=== PATIENT | male | born 1960 | race Two or more races ===

== ENCOUNTER 2018-11-22 17:41 | Inpatient (IN) | payer MEDICARE, MEDICAID ==
--- NOTE | 2018-11-22 18:00 | ED Physician Chart ---
ED Chief Complaint/HPI - Patient Information Date Seen:: 11/22/18 Time Seen:: 17:57 Chief Complaint:: suicidal History of Present Illness:: this is a 58 yo chronically ill male [facility] because he is suicidal. he attempted to cut himself. Allergies:: Allergies Allergy/AdvReac Type Severity Reaction Status Date / Time No Known Allergies Allergy Verified 11/22/18 17:49 Vitals:: Vital Signs - 8 hr 11/22/18 17:49 Temp 98.6 F HR 86 RR 16 BP 94/56 O2 Sat % 95 Historian:: Patient, Medical Records Review:: Nurse's Note Reviewed ED Review of Systems - Review of Systems General/Constitutional: No fever, No chills, No weight loss, No weakness, No diaphoresis, No edema, No loss of appetite, Other (this patient has difficulty ) Skin: No skin lesions, No rash, No bruising Head: No headache, No light-headedness Eyes: No loss of vision, No pain, No diplopia ENT: No earache, No nasal drainage, No sore throat, No tinnitus Neck: No neck pain, No swelling, No thyromegaly, No stiffness, No mass noted Cardio Vascular: No chest pain, No palpitations, No PND, No orthopnea, No edema Pulmonary: No SOB, No cough, No sputum, No wheezing GI: No nausea, No vomiting, No diarrhea, No pain, No melena, No hematochezia, No constipation, No hematemesis G/U: No dysuria, No frequency, No hematuria Musculoskeletal: No bone or joint pain, No back pain, No muscle pain Endocrine: No polyuria, No polydipsia Psychiatric: No prior psych history, No depression, No anxiety, No suicidal ideation Hematopoietic: No bruising, No lymphadenopathy Allergic/Immuno: No urticaria, No angioedema Neurological: No syncope, No focal symptoms, No weakness, No paresthesia, No headache, No seizure, No dizziness, No confusion, No vertigo ED Past Medical History - Past Medical History Obtainable: Yes Past Medical History: CVA/TIA, Dementia, Other (quadraplegic) Family Medical History - Family Member Mother History Unknown: Yes ED Physical Exam - Physical Examination General/Constitutional: Awake, Well-developed, well-nourished, Alert, No distress, GCS 15, Non-toxic appearing, Ambulatory Other Gen/Cons comments:: he has difficulty with speaking. Head: Atraumatic Eyes: Lids, conjuctiva normal, PERRL, EOMI Skin: Nl inspection, No rash, No skin lesions, No ecchymosis, Well hydrated, No lymphadenopathy ENMT: External ears, nose nl, Nasal exam nl, Lips, teeth, gums nl Neck: Nontender, Full ROM w/o pain, No JVD, No nuchal rigidity, No bruit, No mass, No stridor Respiratory: Nl effort/Exclusion, Clear to Auscultation, No Wheeze/Rhonchi/Rales Cardio Vascular: RRR, No murmur, gallop, rubs, NL S1 S2 GI: No tenderness/rebounding/guarding, No organomegaly, No hernia, Normal BS's, Nondistended, No mass/bruits, No McBurney tenderness : No CVA tenderness Extremities: No tenderness or effusion, Full ROM, normal strength in all extremities, No edema, Normal digits & nails Neuro/Psych: Alert/oriented, DTR's symmetric, Normal sensory exam, Normal motor strength, Judgement/insight normal, Mood normal, Normal gait, No focal deficits Other Neuro/Psych comments:: quadraplegic and has difficulty speaking Misc: Normal back, No paraspinal tenderness ED Assessment - Assessment General Assessment: suicidal ED Septic Shock - . Is Septic Shock (SBP<90, OR Lactate>4 mmol\L) present?: No - <6hrs of presentation: Vital Signs: Vital Signs - 8 hr 11/22/ 17:49 Temp 98.6 F HR 86 RR 16 BP 94/56 O2 Sat % 95 ED Reassessment (Disposition) - Diagnosis Diagnosis:: suicidal quadraplegic - Aftercare/Follow up Instructions Notes:: this patient will be given a final evaluation after labs return dr martinez will evaluate for admission.
[2018-11-22 19:00] LABS: % BASOPHILS 0.6 % (0.0-2.0); % EOSINOPHILS 6.7 % (0.0-5.0); % NEUTROPHILS 63.7 % (40.0-80.0); EOSINOPHILE ABSOLUTE 0.4 Th/cmm (0.1-0.4); HEMATOCRIT 35.2 % (41.0-60); HEMOGLOBIN 11.7 gm/dL (12-16); LYMPHOCYTE ABSOLUTE 1.3 Th/cmm (1.5-3.0); MEAN CELL VOLUME 85.7 fl (80-99); MEAN CORPUSCULAR HEMOGLOBIN 28.4 pg (26.0-30.0); MEAN CORPUSCULAR HGB CONC 33.2 pg (28.0-36.0); MONOCYTE ABSOLUTE 0.4 Th/cmm (0.3-1.0); NEUTROPHILE ABSOLUTE 3.9 Th/cmm (1.8-8.0); PLATELET COUNT 465 Th/cmm (150-400); RED BLOOD COUNT 4.11 Mil/cmm (4.30-5.70); RED CELL DISTRIBUTION WIDTH 12.5 % (11.5-20.0)
[2018-11-22 19:19] LABS: ALB/GLOB RATIO 1.2 (1.0-1.8); ALBUMIN 3.6 gm/dL (4.2-5.5); ALKALINE PHOSPHATASE 160 U/L (34-104); ANION GAP 11.6 (7.0-16.0); BILIRUBIN,TOTAL 0.4 mg/dL (0.3-1.0); BUN - UREA NITROGEN 22 mg/dL (7-25); CALCIUM SERUM 9.2 mg/dL (8.6-10.3); CARBON DIOXIDE 26.8 mEq/L (21.0-31.0); CHLORIDE 104 mEq/L (98-107); CREATININE - SERUM 0.7 mg/dL (0.7-1.3); GFR AFRICAN-AMERICAN > 60.0 ml/min (>90); GFR NON AFRICAN-AMERICAN > 60.0 ml/min; GLUCOSE 132 mg/dL (70-105); POTASSIUM SERUM 4.4 mEq/L (3.5-5.1); SGOT 12 U/L (13-39); SGPT/ALT 11 U/L (7-52); SODIUM SERUM 138 mEq/L (136-145); TOTAL PROTEIN,SERUM 6.7 gm/dL (6.0-8.3)
[2018-11-22 19:20] LABS: INR 0.9 (0.5-1.4)
[2018-11-22 23:25] VITALS: BP 118/65
[2018-11-22] MEDS ORDERED: Maalox 30 mL Cup PO PRN (23:28)
[2018-11-22] MEDS ORDERED: Magnesium Hydroxide (MOM) 30 mL UDC PO PRN (23:28)
[2018-11-23 06:57] LABS: CHOLESTEROL 154 mg/dL (<200); HDL -HIGH DENSITY LIPOPROTEIN 43 mg/dL (23-92); TRIGLYCERIDES 104 mg/dL (<150)
--- NOTE | 2018-11-23 08:37 | Diagnostic Imaging Report ---
Portable chest x-ray History: Pain Allowing for portable technique the heart size is normal. No focal pulmonary parenchymal processes. No hilar or mediastinal abnormalities. Impression: No acute abnormalities.
--- NOTE | 2018-11-23 08:38 | Diagnostic Imaging Report ---
CT scan of the brain without contrast History: Headache Total DLP equals 680 CTDI equals 39.1 Axial sections were obtained from the base of the skull to the vertex. There is a normal ventricular system size. No focal parenchymal lesions are seen. No evidence of any mass effect or shift of midline structures. There is prominence of cerebral sulci reflecting a degree of atrophic change about the cerebellum. No extra-axial masses or abnormal fluid collections. Impression: 1. No acute abnormalities 2. Findings reflecting a mild to moderate degree of cerebellar atrophy.
[2018-11-23] MEDS: Vitamin D3 2,000 IU SGL PO SCH (08:56)
[2018-11-23] MEDS: Enoxaparin 40 mg/0.4 mL 0.4mL Syr SUBQ SCH (08:56)
[2018-11-23] MEDS: Multivitamin Tab PO SCH (09:06)
[2018-11-23] MEDS: Fleet Enema 135 mL RC SCH (10:00)
--- NOTE | 2018-11-23 22:42 | History & Physical ---
ADMIT DATE: 11/22/2018 CHIEF COMPLAINT: Psychosis. HISTORY OF PRESENT ILLNESS: The patient is a 58-year-old male with long history of hypertension, psychosis, dementia, admitted to [facility] under Dr. Villanueva's service. The patient is a poor historian. No fever, no chills, no nausea, no vomiting. Apparently, the patient has history of mildly displaced fracture of the distal femur and he is on the knee stabilizer on the right side. X-ray is done, but the official report is pending. Initial report significant for mildly displaced fracture of the distal femur. PAST MEDICAL HISTORY: Significant for hypertension, dementia and psychosis. PAST SURGICAL HISTORY: No recent surgery. ALLERGIES: None. MEDICATIONS: Follow admission reconciliation. SOCIAL HISTORY: No smoking, no alcohol, no drugs. FAMILY HISTORY: Noncontributory. REVIEW OF SYSTEMS: RENAL SYSTEM: No history of chronic renal disorder. CARDIOVASCULAR SYSTEM: No coronary artery disease. ENDOCRINE SYSTEM: No diabetes or thyroid problem. GASTROINTESTINAL SYSTEM: No upper or lower gastrointestinal bleed. NEUROLOGICAL SYSTEM: No seizure disorder. MUSCULOSKELETAL SYSTEM: He has mildly displaced fracture of the distal right femur. HEMATOLOGIC SYSTEM: He has mild anemia. RESPIRATORY: No asthma. GENITOURINARY SYSTEM: No dysuria or hematuria. PHYSICAL EXAMINATION: GENERAL: He is awake, not coherent. VITAL SIGNS: Temperature 98, heart rate 90, blood pressure 96/57. HEENT: Normocephalic. Pupils reactive to light and accommodation. Sclerae clear. NECK: Supple. Negative for lymphadenopathy, JVD or bruit. CHEST: Entry of air bilaterally normal. No rhonchi or wheezing. HEART: S1, S2 normal. ABDOMEN: Soft, bowel sounds positive. EXTREMITIES: No edema. NEUROLOGIC: He is awake, not coherent. LABORATORY DATA: White blood cell 6, hemoglobin 11.7, hematocrit 35.2, platelet is 464. Sodium 138, potassium 4.4, BUN 22, creatinine 0.7. ASSESSMENT: 1. Hypertension. 2. Mildly displaced fracture of the distal right femur. 3. Mild anemia. 4. Dementia. 5. Psychosis. PLAN: The patient admitted to the hospital under Dr. Villanueva's service. Medical problems addressed during hospitalization is psychosis. Medical problems addressed at discharge is hypertension, fracture of the distal right femur. The patient is medically stable for activity. Thank you Dr. Villanueva for asking me to see your patient. The patient is a full code. JOB# [id number]
--- NOTE | 2018-11-24 04:17 | Psychiatric Evaluation ---
DATE OF SERVICE: PATIENT'S AGE: 58 SEX: Male. PHYSICIAN: Dr. Villanueva. CHIEF COMPLAINT: Depression and suicidal ideation. HISTORY OF PRESENT ILLNESS: The patient is a 58-year-old male who was transferred from [facility] to the [facility] because of increased depression and suicidal ideations with plan to cut his wrist. The patient has been feeling severely depressed for unknown reason except "I cannot walk." The patient also has not been able to speak clearly and has been whispering and sometimes difficult to understand, which also increases his depression. The patient questionable has fracture of his right femur that makes him unable to walk. He also has been having lack of energy and lack of motivations. According to [facility], the patient tried to cut his arrest and he wants to and not clear with the reason. PAST PSYCHIATRIC HISTORY: The patient has a history of depression. The patient has been taking Zoloft 50 mg every day. PAST MEDICAL HISTORY: The patient has a history of a CVA and transient ischemic attacks. Also according to the admission report, the patient might be quadriplegic. SOCIAL HISTORY: The patient lives in [facility]. The patient said that he has been for 5 years after 7 years of marriage. The patient has no children. He denies any alcohol or any street drug use. ALLERGIES: No known allergies. MENTAL STATUS EXAMINATION: The patient appears slightly older than his stated age, in a depressed mood, whispers, under the tone, voice is very low and slow rate of speech. The patient denies any auditory or visual hallucinations or delusions. He admits to suicidal ideations with a plan to cut his wrist. He denies any homicidal ideations. The patient is alert and oriented to time, place, person, and situation. Intact immediate, recent and remote memories. Fair insight and fair judgment. He seems to be of average intelligence based on his verbal ability. ASSESSMENT: Primary diagnosis: Major depression, severe, recurrent, without psychotic features. TREATMENT PLAN: We will monitor the patient's behavior and condition closely. We will start individual as well as milieu psychotherapy. Also, we will try to work on his ineffective coping. Also, we will increase Zoloft to 100 mg every day. ESTIMATED LENGTH OF STAY: 5-7 days. THE PATIENT'S STRENGTHS AND WEAKNESSES: The patient's general fund of knowledge is fair. His weakness is his ineffective coping and his suicidal ideations. AFTER DISCHARGE PLAN: The patient will return to [facility] and outpatient treatment and followup will continue as an outpatient. CRITERIA FOR DISCHARGE: The patient will not be suicidal and will stabilize psychotropic medications and will establish outpatient treatment plans. JOB# [id number]
[2018-11-24 08:05] LABS: A1C 6.3 % (4.8-5.6)
[2018-11-24] MEDS: Enoxaparin 40 mg/0.4 mL 0.4mL Syr SUBQ SCH (08:43)
[2018-11-24] MEDS: Vitamin D3 2,000 IU SGL PO SCH (08:44)
[2018-11-24] MEDS: Multivitamin Tab PO SCH (08:45)
--- NOTE | 2018-11-24 09:41 | Diagnostic Imaging Report ---
Right femur (2 views, portable) HISTORY: Pain, trauma The exam demonstrates mildly displaced fracture of the distal femur through the femoral condyles. IMPRESSION: 1. Mildly displaced distal femoral fracture
[2018-11-24] MEDS: Fleet Enema 135 mL RC SCH (10:00)
--- NOTE | 2018-11-24 21:42 | Internal Medicine Prog Note ---
Internal Medicine Subjective - Subjective Service Date: 11/24/18 Patient seen and examined:: with staff Patient is:: awake, non-verbal, in bed, confused Per staff patient has:: no adverse event Internal Medicine Objective - Results Result Diagrams: 11/22/18 18:30 11/22/18 18:30 Recent Labs: Laboratory Last Values WBC 6.0 Th/cmm (4.8-10.8) 11/22/18 18:30 RBC 4.11 Mil/cmm (4.30-5.70) L 11/22/18 18:30 Hgb 11.7 gm/dL (12-16) L 11/22/18 18:30 Hct 35.2 % (41.0-60) L 11/22/18 18:30 MCV 85.7 fl (80-99) 11/22/18 18:30 MCH 28.4 pg (26.0-30.0) 11/22/18 18:30 MCHC Differential 33.2 pg (28.0-36.0) 11/22/18 18:30 RDW 12.5 % (11.5-20.0) 11/22/18 18:30 Plt Count 465 Th/cmm (150-400) H 11/22/18 18:30 MPV 6.9 fl 11/22/18 18:30 Neutrophils % 63.7 % (40.0-80.0) 11/22/18 18:30 Lymphocytes % 22.0 % (20.0-50.0) 11/22/18 18:30 Monocytes % 7.0 % (2.0-10.0) 11/22/18 18:30 Eosinophils % 6.7 % (0.0-5.0) H 11/22/18 18:30 Basophils % 0.6 % (0.0-2.0) 11/22/18 18:30 PT 9.4 SECONDS (9.5-11.5) L 11/22/18 18:30 INR 0.90 (0.5-1.4) 11/22/18 18:30 PTT (Actin FS) 23.6 SECONDS (26.0-38.0) L 11/22/18 18:30 Sodium 138 mEq/L (136-145) 11/22/18 18:30 Potassium 4.4 mEq/L (3.5-5.1) 11/22/18 18:30 Chloride 104 mEq/L (98-107) 11/22/18 18:30 Carbon Dioxide 26.8 mEq/L (21.0-31.0) 11/22/18 18:30 Anion Gap 11.6 (7.0-16.0) 11/22/18 18:30 BUN 22 mg/dL (7-25) 11/22/18 18:30 Creatinine 0.7 mg/dL (0.7-1.3) 11/22/18 18:30 Est GFR ( Amer) > 60.0 ml/min (>90) 11/22/18 18:30 Est GFR (Non-Af Amer) > 60.0 ml/min 11/22/18 18:30 BUN/Creatinine Ratio 31.4 11/22/18 18:30 Glucose 132 mg/dL (70-105) H 11/22/18 18:30 Calcium 9.2 mg/dL (8.6-10.3) 11/22/18 18:30 Total Bilirubin 0.4 mg/dL (0.3-1.0) 11/22/18 18:30 AST 12 U/L (13-39) L 11/22/18 18:30 ALT 11 U/L (7-52) 11/22/18 18:30 Alkaline Phosphatase 160 U/L (34-104) H 11/22/18 18:30 Troponin I < 0.01 ng/mL (0.01-0.05) L 11/22/18 18:30 Total Protein 6.7 gm/dL (6.0-8.3) 11/22/18 18:30 Albumin 3.6 gm/dL (4.2-5.5) L 11/22/18 18:30 Globulin 3.1 gm/dL 11/22/18 18:30 Albumin/Globulin Ratio 1.2 (1.0-1.8) 11/22/18 18:30 Triglycerides 104 mg/dL (<150) 11/23/18 06:15 Cholesterol 154 mg/dL (<200) 11/23/18 06:15 LDL Cholesterol Direct 95 mg/dL (75-193) 11/23/18 06:15 HDL Cholesterol 43 mg/dL (23-92) 11/23/18 06:15 TSH 1.23 uIU/ml (0.34-5.60) 11/22/18 18:30 Salicylates < 25.0 mg/L (30.0-100.0) L 11/22/18 18:30 Acetaminophen < 10.0 ug/mL (10.0-30.0) L 11/22/18 18:30 Ethyl Alcohol < 10 mg/dL (0-10) 11/22/18 18:30 - Physical Exam Vitals and I&O: Vital Signs Temp 97.0 F 11/24/18 20:15 Pulse 85 11/24/18 20:15 Resp 19 11/24/18 20:15 BP 124/68 11/24/18 20:15 Pulse Ox 98 11/24/18 20:15 Intake & Output 11/24/18 11/24/18 11/25/18 06:59 18:59 06:59 Intake Total 120 120 Balance 120 120 Intake: Oral 120 120 Other: # Voids 3 2 2 # Bowel Movements 2 0 Active Medications: Current Medications Acetaminophen (Tylenol) 650 mg PO Q4HR PRN PRN Reason: Pain (Mild) Stop: 01/21/19 23:19 Al Hydrox/Mg Hydrox/Simethicone (Maalox) 30 ml PO Q4HR PRN PRN Reason: GI DISTRESS Stop: 01/21/19 23:27 Bisacodyl (Dulcolax 10 Mg Supp) 10 mg RC DAILY PRN PRN Reason: Constipation Stop: 01/21/19 23:19 Cyanocobalamin (Vitamin B12) 1,000 mcg PO DAILY [facility] Stop: 01/22/19 08:59 Last Admin: 11/24/18 08:44 Dose: 1,000 mcg Docusate Sodium (Colace) 100 mg PO DAILY [facility] Stop: 01/22/19 08:59 Last Admin: 11/24/18 08:44 Dose: 100 mg Enoxaparin Sodium (Lovenox) 40 mg SUBQ DAILY [facility] Stop: 01/22/19 08:59 Last Admin: 11/24/18 08:43 Dose: 40 mg Lisinopril (Zestril) 5 mg PO DAILY [facility] Stop: 01/22/19 08:59 Last Admin: 11/24/18 08:43 Dose: 5 mg Lorazepam (Ativan) 0.5 mg PO Q4HR PRN; Protocol PRN Reason: Anxiety Stop: 12/22/18 23:27 Magnesium Hydroxide (Milk Of Magnesia) 30 ml PO HS PRN PRN Reason: Constipation Multivitamins/Vitamin C (Theragran) 1 tab PO DAILY [facility] Stop: 01/22/19 08:59 Last Admin: 11/24/18 08:45 Dose: 1 tab Sertraline HCl (Zoloft) 100 mg PO HS [facility]; Protocol Stop: 01/22/19 20:59 Last Admin: 11/24/18 21:33 Dose: 100 mg Sodium Phosphate (Fleet Enema) 135 ml RC DAILY [facility] Stop: 01/22/19 08:59 Last Admin: 11/24/18 10:00 Dose: Not Given Vitamin D (Vitamin D3) 2,000 iu PO DAILY [facility] Stop: 01/22/19 08:59 Last Admin: 11/24/18 08:44 Dose: 2,000 iu Zolpidem Tartrate (Ambien) 5 mg PO HS PRN; Protocol PRN Reason: Insomnia Stop: 01/21/19 23:27 Last Admin: 11/23/18 21:11 Dose: 5 mg General: alert, demented HEENT: NC/AT, PERRLA, EOMI, anicteric sclerae, throat clear Neck: Supple, No JVD, No thyromegaly, +2 carotid pulse wo bruit, No LAD Lungs: CTAB Cardiovascular: RRR, Normal S1, Normal S2, without murmur Abdomen: soft, non-tender, non-distended Extremities: clear Neurological: no change Internal Medicine Assmt/Plan - Assessment Assessment: 1.HTN. 2.MILDLEY DISPLACED FRACTURE OF THE DISTAL RT FEMUR. 3.ANEMIA. 4.PSYCHOSIS. - Plan Plan: CONTINUE ON CURRENT MEDICATION AND DIET.
--- NOTE | 2018-11-24 23:55 | Progress Notes ---
DATE: 11/24/2018 SUBJECTIVE: Chart was reviewed and the patient interviewed. Also discussed the patient's condition with the staff and reviewed records and labs. The patient is still severely depressed and he is still feeling hopeless and helpless. He also is interacting minimally with others. He also wants to be left alone. Also, continue to have thoughts of suicide with a plan to cut his wrists. The patient apparently does not have a fractured femur, but has weakness in his leg and his knee and Dr. Li recommended that the patient uses a new brace. Also, recommended physical therapy and also because the patient has been whispering, we will recommend speech therapy. ASSESSMENT: The patient is still severely depressed and still needs close monitoring. TREATMENT PLAN: Continue to monitor his behavior and his condition closely. Also, Zoloft was increased yesterday. Continue adjusting the dose and continue to work on behavioral modification. Also, we will order speech therapy as well as physical therapy. JOB# [id number]
[2018-11-25] MEDS: Enoxaparin 40 mg/0.4 mL 0.4mL Syr SUBQ SCH (08:49)
[2018-11-25] MEDS: Multivitamin Tab PO SCH (08:50)
[2018-11-25] MEDS: Vitamin D3 2,000 IU SGL PO SCH (08:51)
[2018-11-25] MEDS: Fleet Enema 135 mL RC SCH (16:02)
--- NOTE | 2018-11-25 20:58 | Internal Medicine Prog Note ---
Internal Medicine Subjective - Subjective Service Date: 11/25/18 Patient seen and examined:: without staff (HE IS DOING BETTER) Patient is:: awake, non-verbal, in bed, confused Per staff patient has:: no adverse event Internal Medicine Objective - Results Result Diagrams: 11/22/18 18:30 11/22/18 18:30 Recent Labs: Laboratory Last Values WBC 6.0 Th/cmm (4.8-10.8) 11/22/18 18:30 RBC 4.11 Mil/cmm (4.30-5.70) L 11/22/18 18:30 Hgb 11.7 gm/dL (12-16) L 11/22/18 18:30 Hct 35.2 % (41.0-60) L 11/22/18 18:30 MCV 85.7 fl (80-99) 11/22/18 18:30 MCH 28.4 pg (26.0-30.0) 11/22/18 18:30 MCHC Differential 33.2 pg (28.0-36.0) 11/22/18 18:30 RDW 12.5 % (11.5-20.0) 11/22/18 18:30 Plt Count 465 Th/cmm (150-400) H 11/22/18 18:30 MPV 6.9 fl 11/22/18 18:30 Neutrophils % 63.7 % (40.0-80.0) 11/22/18 18:30 Lymphocytes % 22.0 % (20.0-50.0) 11/22/18 18:30 Monocytes % 7.0 % (2.0-10.0) 11/22/18 18:30 Eosinophils % 6.7 % (0.0-5.0) H 11/22/18 18:30 Basophils % 0.6 % (0.0-2.0) 11/22/18 18:30 PT 9.4 SECONDS (9.5-11.5) L 11/22/18 18:30 INR 0.90 (0.5-1.4) 11/22/18 18:30 PTT (Actin FS) 23.6 SECONDS (26.0-38.0) L 11/22/18 18:30 Sodium 138 mEq/L (136-145) 11/22/18 18:30 Potassium 4.4 mEq/L (3.5-5.1) 11/22/18 18:30 Chloride 104 mEq/L (98-107) 11/22/18 18:30 Carbon Dioxide 26.8 mEq/L (21.0-31.0) 11/22/18 18:30 Anion Gap 11.6 (7.0-16.0) 11/22/18 18:30 BUN 22 mg/dL (7-25) 11/22/18 18:30 Creatinine 0.7 mg/dL (0.7-1.3) 11/22/18 18:30 Est GFR ( Amer) > 60.0 ml/min (>90) 11/22/18 18:30 Est GFR (Non-Af Amer) > 60.0 ml/min 11/22/18 18:30 BUN/Creatinine Ratio 31.4 11/22/18 18:30 Glucose 132 mg/dL (70-105) H 11/22/18 18:30 Calcium 9.2 mg/dL (8.6-10.3) 11/22/18 18:30 Total Bilirubin 0.4 mg/dL (0.3-1.0) 11/22/18 18:30 AST 12 U/L (13-39) L 11/22/18 18:30 ALT 11 U/L (7-52) 11/22/18 18:30 Alkaline Phosphatase 160 U/L (34-104) H 11/22/18 18:30 Troponin I < 0.01 ng/mL (0.01-0.05) L 11/22/18 18:30 Total Protein 6.7 gm/dL (6.0-8.3) 11/22/18 18:30 Albumin 3.6 gm/dL (4.2-5.5) L 11/22/18 18:30 Globulin 3.1 gm/dL 11/22/18 18:30 Albumin/Globulin Ratio 1.2 (1.0-1.8) 11/22/18 18:30 Triglycerides 104 mg/dL (<150) 11/23/18 06:15 Cholesterol 154 mg/dL (<200) 11/23/18 06:15 LDL Cholesterol Direct 95 mg/dL (75-193) 11/23/18 06:15 HDL Cholesterol 43 mg/dL (23-92) 11/23/18 06:15 TSH 1.23 uIU/ml (0.34-5.60) 11/22/18 18:30 Salicylates < 25.0 mg/L (30.0-100.0) L 11/22/18 18:30 Acetaminophen < 10.0 ug/mL (10.0-30.0) L 11/22/18 18:30 Ethyl Alcohol < 10 mg/dL (0-10) 11/22/18 18:30 - Physical Exam Vitals and I&O: Vital Signs Temp 97.6 F 11/25/18 20:48 Pulse 77 11/25/18 20:48 Resp 18 11/25/18 20:48 BP 105/60 11/25/18 20:48 Pulse Ox 95 11/25/18 20:48 Intake & Output 11/25/18 11/25/18 11/26/18 06:59 18:59 06:59 Intake Total 120 240 Output Total 1 Balance 120 239 Intake: Oral 120 240 Output: Urine/Stool Mix 1 Other: # Voids 1 1 # Bowel Movements 0 Active Medications: Current Medications Acetaminophen (Tylenol) 650 mg PO Q4HR PRN PRN Reason: Pain (Mild) Stop: 01/21/19 23:19 Al Hydrox/Mg Hydrox/Simethicone (Maalox) 30 ml PO Q4HR PRN PRN Reason: GI DISTRESS Stop: 01/21/19 23:27 Bisacodyl (Dulcolax 10 Mg Supp) 10 mg RC DAILY PRN PRN Reason: Constipation Stop: 01/21/19 23:19 Cyanocobalamin (Vitamin B12) 1,000 mcg PO DAILY [facility] Stop: 01/22/19 08:59 Last Admin: 11/25/18 08:50 Dose: 1,000 mcg Docusate Sodium (Colace) 100 mg PO DAILY [facility] Stop: 01/22/19 08:59 Last Admin: 11/25/18 08:50 Dose: 100 mg Enoxaparin Sodium (Lovenox) 40 mg SUBQ DAILY [facility] Stop: 01/22/19 08:59 Last Admin: 11/25/18 08:49 Dose: 40 mg Lisinopril (Zestril) 5 mg PO DAILY [facility] Stop: 01/22/19 08:59 Last Admin: 11/25/18 08:49 Dose: 5 mg Lorazepam (Ativan) 0.5 mg PO Q4HR PRN; Protocol PRN Reason: Anxiety Stop: 12/22/18 23:27 Magnesium Hydroxide (Milk Of Magnesia) 30 ml PO HS PRN PRN Reason: Constipation Multivitamins/Vitamin C (Theragran) 1 tab PO DAILY [facility] Stop: 01/22/19 08:59 Last Admin: 11/25/18 08:50 Dose: 1 tab Sertraline HCl (Zoloft) 100 mg PO HS [facility]; Protocol Stop: 01/22/19 20:59 Last Admin: 11/24/18 21:33 Dose: 100 mg Sodium Phosphate (Fleet Enema) 135 ml RC DAILY [facility] Stop: 01/22/19 08:59 Last Admin: 11/25/18 16:02 Dose: Not Given Vitamin D (Vitamin D3) 2,000 iu PO DAILY [facility] Stop: 01/22/19 08:59 Last Admin: 11/25/18 08:51 Dose: 2,000 iu Zolpidem Tartrate (Ambien) 5 mg PO HS PRN; Protocol PRN Reason: Insomnia Stop: 01/21/19 23:27 Last Admin: 11/23/18 21:11 Dose: 5 mg General: alert, demented HEENT: NC/AT, PERRLA, EOMI, anicteric sclerae, throat clear Neck: Supple, No JVD, No thyromegaly, +2 carotid pulse wo bruit, No LAD Lungs: CTAB Cardiovascular: RRR, Normal S1, Normal S2, without murmur Abdomen: soft, non-tender, non-distended Extremities: clear Neurological: no change Internal Medicine Assmt/Plan - Assessment Assessment: 1.HTN. 2.MILDLEY DISPLACED FRACTURE OF THE DISTAL RT FEMUR. 3.ANEMIA. 4.PSYCHOSIS. - Plan Plan: CONTINUE ON CURRENT MEDICATION AND DIET.
--- NOTE | 2018-11-25 23:32 | Progress Notes ---
DATE: 11/25/2018 SUBJECTIVE: Chart was reviewed and the patient interviewed. Also discussed the patient's condition with the staff and reviewed records and labs. The patient is still depressed, but his affect is slightly brighter. The patient is still whispering while carrying on the conversation, although he is trying to talk with normal tone of voice. The patient also is still agitated and withdrawn and interacting minimally. Today, the patient denies any intention to harm himself. Otherwise, the patient is compliant with taking his medications with no side effects of medications. ASSESSMENT: The patient is still depressed and high risk of suicide, but not suicidal. Also, compliant with taking his medications. TREATMENT PLAN: Continue to work on his depression and ineffective coping and continue adjusting psychotropic medications. Also, physical therapy and speech therapy ordered for the patient. Hopefully, if he gets physically better that will help him emotionally. [facility]# [id number]
[2018-11-26] MEDS: Enoxaparin 40 mg/0.4 mL 0.4mL Syr SUBQ SCH (09:27)
[2018-11-26] MEDS: Multivitamin Tab PO SCH (09:28)
[2018-11-26] MEDS: Fleet Enema 135 mL RC SCH (09:30)
[2018-11-26] MEDS: Vitamin D3 2,000 IU SGL PO SCH (09:30)
--- NOTE | 2018-11-26 21:13 | Internal Medicine Prog Note ---
Internal Medicine Subjective - Subjective Service Date: 11/26/18 Patient seen and examined:: with staff (HE IS DOING WELL) Patient is:: awake, non-verbal, in bed, confused Per staff patient has:: no adverse event Internal Medicine Objective - Results Result Diagrams: 11/22/18 18:30 11/22/18 18:30 Recent Labs: Laboratory Last Values WBC 6.0 Th/cmm (4.8-10.8) 11/22/18 18:30 RBC 4.11 Mil/cmm (4.30-5.70) L 11/22/18 18:30 Hgb 11.7 gm/dL (12-16) L 11/22/18 18:30 Hct 35.2 % (41.0-60) L 11/22/18 18:30 MCV 85.7 fl (80-99) 11/22/18 18:30 MCH 28.4 pg (26.0-30.0) 11/22/18 18:30 MCHC Differential 33.2 pg (28.0-36.0) 11/22/18 18:30 RDW 12.5 % (11.5-20.0) 11/22/18 18:30 Plt Count 465 Th/cmm (150-400) H 11/22/18 18:30 MPV 6.9 fl 11/22/18 18:30 Neutrophils % 63.7 % (40.0-80.0) 11/22/18 18:30 Lymphocytes % 22.0 % (20.0-50.0) 11/22/18 18:30 Monocytes % 7.0 % (2.0-10.0) 11/22/18 18:30 Eosinophils % 6.7 % (0.0-5.0) H 11/22/18 18:30 Basophils % 0.6 % (0.0-2.0) 11/22/18 18:30 PT 9.4 SECONDS (9.5-11.5) L 11/22/18 18:30 INR 0.90 (0.5-1.4) 11/22/18 18:30 PTT (Actin FS) 23.6 SECONDS (26.0-38.0) L 11/22/18 18:30 Sodium 138 mEq/L (136-145) 11/22/18 18:30 Potassium 4.4 mEq/L (3.5-5.1) 11/22/18 18:30 Chloride 104 mEq/L (98-107) 11/22/18 18:30 Carbon Dioxide 26.8 mEq/L (21.0-31.0) 11/22/18 18:30 Anion Gap 11.6 (7.0-16.0) 11/22/18 18:30 BUN 22 mg/dL (7-25) 11/22/18 18:30 Creatinine 0.7 mg/dL (0.7-1.3) 11/22/18 18:30 Est GFR ( Amer) > 60.0 ml/min (>90) 11/22/18 18:30 Est GFR (Non-Af Amer) > 60.0 ml/min 11/22/18 18:30 BUN/Creatinine Ratio 31.4 11/22/18 18:30 Glucose 132 mg/dL (70-105) H 11/22/18 18:30 Calcium 9.2 mg/dL (8.6-10.3) 11/22/18 18:30 Total Bilirubin 0.4 mg/dL (0.3-1.0) 11/22/18 18:30 AST 12 U/L (13-39) L 11/22/18 18:30 ALT 11 U/L (7-52) 11/22/18 18:30 Alkaline Phosphatase 160 U/L (34-104) H 11/22/18 18:30 Troponin I < 0.01 ng/mL (0.01-0.05) L 11/22/18 18:30 Total Protein 6.7 gm/dL (6.0-8.3) 11/22/18 18:30 Albumin 3.6 gm/dL (4.2-5.5) L 11/22/18 18:30 Globulin 3.1 gm/dL 11/22/18 18:30 Albumin/Globulin Ratio 1.2 (1.0-1.8) 11/22/18 18:30 Triglycerides 104 mg/dL (<150) 11/23/18 06:15 Cholesterol 154 mg/dL (<200) 11/23/18 06:15 LDL Cholesterol Direct 95 mg/dL (75-193) 11/23/18 06:15 HDL Cholesterol 43 mg/dL (23-92) 11/23/18 06:15 TSH 1.23 uIU/ml (0.34-5.60) 11/22/18 18:30 Salicylates < 25.0 mg/L (30.0-100.0) L 11/22/18 18:30 Acetaminophen < 10.0 ug/mL (10.0-30.0) L 11/22/18 18:30 Ethyl Alcohol < 10 mg/dL (0-10) 11/22/18 18:30 RPR NONREACTIVE (NONREACTIVE) 11/22/18 18:30 - Physical Exam Vitals and I&O: Vital Signs Temp 98.2 F 11/26/18 20:11 Pulse 79 11/26/18 20:11 Resp 18 11/26/18 20:11 BP 92/60 11/26/18 20:11 Pulse Ox 93 11/26/18 20:11 Intake & Output 11/26/18 11/26/18 11/27/18 06:59 18:59 06:59 Intake Total 240 240 Output Total 1 1 Balance 239 239 Intake: Oral 240 240 Output: Urine/Stool Mix 1 1 Other: # Voids 1 1 Active Medications: Current Medications Acetaminophen (Tylenol) 650 mg PO Q4HR PRN PRN Reason: Pain (Mild) Stop: 01/21/19 23:19 Al Hydrox/Mg Hydrox/Simethicone (Maalox) 30 ml PO Q4HR PRN PRN Reason: GI DISTRESS Stop: 01/21/19 23:27 Bisacodyl (Dulcolax 10 Mg Supp) 10 mg RC DAILY PRN PRN Reason: Constipation Stop: 01/21/19 23:19 Cyanocobalamin (Vitamin B12) 1,000 mcg PO DAILY [facility] [place] Stop: 01/22/19 08:59 Last Admin: 11/26/18 09:27 Dose: 1,000 mcg Docusate Sodium (Colace) 100 mg PO DAILY [facility] [place] Stop: 01/22/19 08:59 Last Admin: 11/26/18 09:28 Dose: 100 mg Enoxaparin Sodium (Lovenox) 40 mg SUBQ DAILY [facility] [place] Stop: 01/22/19 08:59 Last Admin: 11/26/18 09:27 Dose: 40 mg Lisinopril (Zestril) 5 mg PO DAILY [facility] [place] Stop: 01/22/19 08:59 Last Admin: 11/26/18 09:29 Dose: Not Given Lorazepam (Ativan) 0.5 mg PO Q4HR PRN; Protocol PRN Reason: Anxiety Stop: 12/22/18 23:27 Magnesium Hydroxide (Milk Of Magnesia) 30 ml PO HS PRN PRN Reason: Constipation Multivitamins/Vitamin C (Theragran) 1 tab PO DAILY [facility] Stop: 01/22/19 08:59 Last Admin: 11/26/18 09:28 Dose: 1 tab Sertraline HCl (Zoloft) 100 mg PO HS [facility]; Protocol Stop: 01/22/19 20:59 Last Admin: 11/25/18 21:28 Dose: 100 mg Sodium Phosphate (Fleet Enema) 135 ml RC DAILY [facility] Stop: 01/22/19 08:59 Last Admin: 11/26/18 09:30 Dose: Not Given Vitamin D (Vitamin D3) 2,000 iu PO DAILY [facility] Stop: 01/22/19 08:59 Last Admin: 11/26/18 09:30 Dose: 2,000 iu Zolpidem Tartrate (Ambien) 5 mg PO HS PRN; Protocol PRN Reason: Insomnia Stop: 01/21/19 23:27 Last Admin: 11/23/18 21:11 Dose: 5 mg General: alert, demented HEENT: NC/AT, PERRLA, EOMI, anicteric sclerae, throat clear Neck: Supple, No JVD, No thyromegaly, +2 carotid pulse wo bruit, No LAD Lungs: CTAB Cardiovascular: RRR, Normal S1, Normal S2, without murmur Abdomen: soft, non-tender, non-distended Extremities: clear Neurological: no change Internal Medicine Assmt/Plan - Assessment Assessment: 1.HTN. 2.MILDLEY DISPLACED FRACTURE OF THE DISTAL RT FEMUR. 3.ANEMIA. 4.PSYCHOSIS. - Plan Plan: CONTINUE ON CURRENT MEDICATION AND DIET.
[2018-11-27] MEDS: Enoxaparin 40 mg/0.4 mL 0.4mL Syr SUBQ SCH (09:52)
[2018-11-27] MEDS: Multivitamin Tab PO SCH (09:52)
[2018-11-27] MEDS: Vitamin D3 2,000 IU SGL PO SCH (09:52)
[2018-11-27] MEDS: Fleet Enema 135 mL RC SCH (09:52)
--- NOTE | 2018-11-27 16:32 | Discharge Summary ---
DATE OF DISCHARGE: 11/27/2018 PATIENT'S AGE: 58. SEX: Male. FINAL DIAGNOSIS/PRIMARY DIAGNOSIS: Major depression, severe, recurrent, without psychotic features. REASON FOR HOSPITALIZATION: The patient was admitted to the hospital because of increased depression and because of suicidal ideations, was planning to cut his wrists. HOSPITAL COURSE: The patient continued to be anxious and in a depressed mood. The patient was whispering, and he had difficulty with his mood, and upon admission, admitted that he wants to kill himself. Zoloft was increased to 100 mg every day. The patient's affect became brighter. The patient was less depressed and less hopeless feelings. The patient was started on physical therapy as well as on speech therapy, but the family insists the patient to go back and they did not want him to stay in a psychiatric unit. Since the patient was not suicidal or homicidal, the patient was discharged from the hospital and returned to [facility]. PHYSICAL EXAMINATION: The patient was monitored closely by Dr. Li and the patient had no major medical problems during that period. Blood workup was also basically within normal while in the unit. AFTER DISCHARGE PLANS: The patient discharged from the hospital and returned to [facility] with plans to continue his treatment there. EXPECTED OUTCOME AFTER DISCHARGE: Fair if the patient continues with his treatment and continue to take his psychotropic medications and work on his ineffective coping. JOB# [id number]
--- NOTE | 2018-11-27 18:19 | Progress Notes ---
DATE: SUBJECTIVE: Chart was reviewed and the patient interviewed. Also discussed the patient's condition with the staff and reviewed records and labs. I also talked with the patient's sister about his condition. The patient's affect is slightly brighter. The patient is less depressed. The patient is trying to carry on more conversation and he is smiling more appropriately. He is still whispering during his conversation, but at the same time, speech therapy was ordered and waiting for the results. Also, continue monitoring Zoloft, the dose, and Zoloft was increased to 100 mg at bedtime with no side effects. The patient's sister insisting that the patient should go back to the [facility] and that he was not suicidal and she tried to give me different excuses about the reason of that place, send him to the psychiatric unit and thanked that she does not have any psychiatric unit. When I informed her that the patient told me that he wants to kill himself and he denies now, she is still in denial. Speech therapy and physical therapy for the patient. Also, the patient is showing improvement. I agreed with the patient's sister at the end that if the patient continued to improve tomorrow, we will let him go back to [facility] and we will treat him over there. JOB# [id number]
== END 2018-11-27 13:15 | DRG 885 ==
LOC: ER 17:41 → GERO 20:10
PROVIDERS: ADMIT Psychiatry & Neurology Psychiatry; ATTEND Psychiatry & Neurology Psychiatry
DX: F33.2 Major depressive disorder, recurrent severe without psychotic features (principal); G82.50 Quadriplegia, unspecified; I10 Essential (primary) hypertension; D64.9 Anemia, unspecified; F03.90 Unspecified dementia, unspecified severity, without behavioral disturbance, psychotic disturbance, mood disturbance, and anxiety; F29 Unspecified psychosis not due to a substance or known physiological condition; Z86.73 Personal history of transient ischemic attack (TIA), and cerebral infarction without residual deficits
CPT/HCPCS: 36415-UA; 70450-TC; 71045-TC; 80053-TC; 80061-TC; 80320-TC; 80329-TC; 83036-90; 84443-TC; 84484-TC; 85025-TC; 85610-TC; 85730-TC; 86592-TC; 97530; J1650